=== PATIENT | male | born 1960 | race Caucasian/White ===

== ENCOUNTER 2016-05-04 20:08 | Emergency (ER) | payer BC ==
[~2016-05-04] VITALS: Ht 185.4 cm; Wt 131.0 kg
[~2016-05-04 20:08] MED LIST: ATEN50TA
[2016-05-04 21:25] VITALS: Ht 185.4 cm; Wt 131.0 kg
[2016-05-04] MEDS ORDERED: HYDROCODONE/APAP (5/325) TAB PO ONE (23:00)
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
[2016-05-05] MEDS ORDERED: HYDR-906 PO (00:25)
[2016-05-05] MEDS ORDERED: IBUP-1542 PO (00:25)
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
[2016-05-05 00:39] VITALS: BP 157/95; PULSE 69; RESP 18
== END 2016-05-05 00:40 | disposition home or self-care (01) ==
LOC: FTE 20:08
DX: S29.9XXA Unspecified injury of thorax, initial encounter (principal); R07.81 Pleurodynia; V89.2XXA Person injured in unspecified motor-vehicle accident, traffic, initial encounter
CPT/HCPCS: 71010; 71100; 93005

== ENCOUNTER → 2017-06-08 | Outpatient (CLI) | END | disposition home or self-care (01) ==

== ENCOUNTER 2018-09-30 13:35 | Emergency (ER) | payer BC ==
[~2018-09-30] VITALS: Ht 185.4 cm; Wt 128.3 kg
[~2018-09-30 13:35] MED LIST changes: +HYDR-4011 PO; +IBUP-1542 PO
[2018-09-30 13:55] VITALS: BP 123/73; PULSE 68; RESP 16; Ht 185.4 cm; Wt 128.3 kg
[2018-09-30] MEDS ORDERED: IBUPROFEN 600 MG TAB PO ONE (15:30)
[2018-09-30] MEDS ORDERED: HYDROCODONE/APAP (5/325) TAB PO ONE (15:30)
[2018-09-30] MEDS ORDERED: IBUP-1542 PO (16:41)
[2018-09-30] MEDS ORDERED: CYCL10TA7 PO (16:41)
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
== END 2018-09-30 16:52 | disposition home or self-care (01) ==
LOC: FTE 13:35
DX: S39.92XA Unspecified injury of lower back, initial encounter (principal); S19.9XXA Unspecified injury of neck, initial encounter; I10 Essential (primary) hypertension; V89.2XXA Person injured in unspecified motor-vehicle accident, traffic, initial encounter
CPT/HCPCS: 72040; 72100